=== PATIENT | male | born 1960 | race Caucasian/White ===

== ENCOUNTER 2016-07-29 01:23 | Day surgery (SDC) | payer OTHER ==
[~2016-07-29] VITALS: Ht 185.4 cm; Wt 113.4 kg
[~2016-07-29 01:23] MED LIST: ALBUTHFA INH; AMLO5TAB90 PO; CLAR10T PO; FLONASE; MULT-1018 PO; OMEP20CA11 PO
[2016-07-29] MEDS ORDERED: Sodium Chloride LOK Flush 10 mL Syringe IV PRN (09:15)
[2016-07-29] MEDS ORDERED: fentaNYL-PF 50 mCg/mL 2 mL Inj IVPUSH PRN (09:15)
[2016-07-29 09:52] VITALS: BP 137/85; PULSE 66; RESP 12; O2SAT 98
[2016-07-29] MEDS: 0.9% Sodium Chloride 1,000 ML IV PRN ×2 (10:11→10:53)
[2016-07-29 11:05] VITALS: BP 121/76; PULSE 68; RESP 16; O2SAT 98
[2016-07-29 11:15] VITALS: BP 118/71; PULSE 63; RESP 16; O2SAT 96
[2016-07-29 11:25] VITALS: BP 129/91; PULSE 62; RESP 16; O2SAT 97
--- NOTE | 2016-07-29 15:10 | ENDO ---
[address] [address] ENDOSCOPY PROCEDURE PATIENT: IZZY DUNAWAY : 1960 MR#: [id number] ADMIT: 07/29/2016 JOB ID: [id number] DATE: 07/29/2016 PRIMARY PROVIDER: Darnell Simpson Rai PROCEDURE: Esophagogastroduodenoscopy with biopsies and a colonoscopy with cold forceps polypectomy. INDICATIONS: A 56-year-old male with long segment La's and a history of colon polyps returning for surveillance. EQUIPMENT: GIF H 180 J and a PCF H 180 AL. SEDATION: 1. 9 mg Versed. 2. 175 mcg fentanyl. COMPLICATIONS: None identified. BOWEL PREPARATION: Fair, adequate examination. PROCEDURAL INFORMATION: After the risks and benefits were explained, written and verbal informed consent was obtained. The patient was brought into the endoscopy suite and placed into the left lateral decubitus position. Sedation was achieved using the above-stated medications with the addition of oxygen via nasal cannula. The scope was introduced into the mouth through the bite block, and advanced to the second portion of the duodenum and the scope was slowly withdrawn to carefully examine the mucosa for any defects or lesions. Retroflexed views were accomplished in the stomach. The stomach was decompressed. The scope removed the patient who tolerated the procedure well. The patient was then turned around. A digital rectal examination accomplished. Moderate grade 3 inflamed hemorrhoids, nonthrombosed, nonbleeding were identified. The scope was introduced into the rectum and advanced to the cecum as identified by the appendiceal orifice and ileocecal valve. The scope was slowly withdrawn to carefully examine the mucosa for any defects or lesions. Retroflexed views were accomplished in the rectum. The colon was decompressed. The scope removed from the patient who tolerated the procedure well. With. FINDINGS: 1. Duodenum. There was a small polyp in the early second portion removed with cold forceps. Otherwise, no significant pathology appreciated. 2. Stomach: There was a diminutive gastric polyp in the fundus. It was a little erythematous. This was removed by way of piecemeal polypectomy. It measured perhaps 5-6 mm. No other significant pathology identified throughout. 3. Esophagus: The squamocolumnar junction extended all the way up into the proximal esophagus. The GE junction was at about 40 cm from the incisors. This measured out to be an approximately nearly circumferential 10 cm segment of La's. Did not see any evidence of acute inflammatory areas. No nodules. No mass lesions. No high risk areas appreciated. Four quadrant biopsies were taken at 39, 37, 35, 33, and finally 31 cm from the incisors. 4. Colon: There was some mild diverticulosis in the left colon. A diminutive 4 mm polyp was removed with cold forceps from the rectum. No other significant pathology was appreciated throughout. ENDOSCOPIC DIAGNOSES: 1. Long segment La's. 2. Sliding hiatal hernia (not mentioned above). 3. Gastric polyps. 4. Duodenal polyp. 5. Rectal polyp. 6. Diverticulosis. 7. Moderately engorged internal hemorrhoids. RECOMMENDATIONS: 1. Await histopathology. 2. If non dysplastic La's is confirmed, then repeat esophagogastroduodenoscopy three years. 3. Continue anti-reflux regimen. 4. Repeat colonoscopy in five years' time. 5. The patient is encouraged to engage in warm Epsom salt baths this evening. He may benefit from a short course of preparation H suppository therapy to control hemorrhoidal engorgement plus or minus the Preparation-H cooling gel. 6. Followup GI clinic p.r.n.
--- NOTE | 2016-07-31 10:04 | PATH ---
SURGICAL PATHOLOGY Attending Physician:Anthony English CASE STATUS: Signed Out PATIENT NAME: IZZY DUNAWAY PID: [id number] : 1960 DATE COLLECTED:07/29/2016 20:35 SPECIMEN: 1: Esophagus, Biopsy 2: Esophagus, Biopsy 3: Esophagus, Biopsy 4: Esophagus, Biopsy 5: Esophagus, Biopsy 6: Stomach, Polyp, Biopsy 7: Duodenum, Biopsy 8: Rectum, Biopsy CLINICAL HISTORY: HISTORY TIWARI'S, HISTORY COLON POLYPS, UGI POLYPS 1). ESOPHAGUS BIOPSY @ 31CM 2). ESOPHAGUS BIOPSY @ 33CM 3). ESOPHAGUS BIOPSY @ 35CM 4). ESOPHAGUS BIOPSY @ 37CM 5). ESOPHAGUS BIOPSY @ 39CM 6). GASTRIC POLYP 7). DUODENAL POLYP 8). RECTAL POLYP FINAL DIAGNOSIS: 1. 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 Negative for dysplasia and malignancy. 2. 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 Negative for dysplasia and malignancy. 3. 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 Negative for dysplasia and malignancy. 4. 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 Negative for dysplasia and malignancy. 5. Esophagus Biopsy at 39 cm: Metaplastic intestinal metaplasia consistent with Tiwari's esophagus, 3 of 5 fragments. Negative for dysplasia and malignancy. 6. Gastric Polyp: Hyperplastic polyp. Negative for intestinal metaplasia. Negative for dysplasia and malignancy. 7. Duodenal Polyp: Benign duodenal mucosa with gastric surface cell metaplasia. Negative for dysplasia and malignancy. Multiple microscopic levels examined. 8. 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 1). The specimen is sublabeled "esophagus at 31 CM" and consists of 3 portions of tissue which aggregate to 0.3 x 0.3 x 0.2 CM. The specimen is entirely submitted in cassette 1A. 2). The specimen is sublabeled "esophagus at 33 CM" and consists of 4 portions of tissue which aggregate to 0.3 x 0.3 x 0.2 CM. The specimen is entirely submitted in cassette 2A. 3). Thus specimen is sublabeled "esophagus at 35 CM" and consists of 4 portions of tissue which aggregate to 0.3 x 0.3 x 0.2 CM. The specimen is entirely submitted in cassette 3A. 4). The specimen is sublabeled "esophagus at 37 CM" and consists of 4 portions of tissue which aggregate to 0.3 x 0.3 x 0.2 CM. The specimen is entirely submitted in cassette 4A. 5). The specimen is sublabeled "esophagus at 39 CM" and consists of 4 portions of tissue which aggregate to 0.3 x 0.3 x 0.3 CM. The specimen is entirely submitted in cassette 5A. 6). The specimen is sublabeled "gastric polyp" and consists of 2 portions of tissue which aggregate to 0.4 x 0.4 x 0.3 CM. The specimen is entirely submitted in cassette 6A. 7). The specimen is sublabeled "duodenal polyp" and consists of a 0.3 x 0.3 x 0.3 CM portion of tissue which is entirely submitted in cassette 7A. 8). The specimen is sublabeled "rectal polyp" and consists of 2 portions of tissue which aggregate to 0.3 x 0.3 x 0.2 CM. The specimen is entirely submitted in cassette 8A. 07/29/2016 [facility] MICRO DESCRIPTION: Please see diagnosis. ICD-9 CODES: CPT CODES: 1: 31264 2: 33291 3: 76532 4: 41294 5: 05347 6: 72983, 29102 7: 15124 8: 52991 PROCEDURE/ADDENDA: Immunohistochemistry SPI Interpretation {Not Entered} Results-Comments This is an addendum issued report the results of IHC. IHC reported at the request of Dr. Bell. RESULTS: 6.GASTRIC POLYP: NEGATIVE FOR HELICOBACTER BY IMMUNOHISTOCHEMISTRY. INTERPRETATION: A Helicobacter stain was performed at the request of Dr. Bell to evaluate for Helicobacter organisms and is negative. A control stain showed appropriate reactivity. This test was developed and its performance characteristics determined by [facility]. It has not been cleared or approved by the U. [place]. Food and Drug Administration. The FDA has determined that such clearance or approval is not necessary. This test is used for clinical purposes. It should not be regarded as investigational or for research. Electronically Signed Out Cecilia Giraldo MD Electronically Signed Out Qian Britton MD Located Within [facility] Pathology [facility] [address], [place] [address] Technical component performed at [facility], [address], [place], [address]
== END 2016-07-29 23:59 | disposition home or self-care (01) ==
LOC: END 01:23
PROVIDERS: ATTEND Internal Medicine Gastroenterology
DX: Z12.11 Encounter for screening for malignant neoplasm of colon (principal); Z86.010 Personal history of colon polyps; K62.1 Rectal polyp; K64.4 Residual hemorrhoidal skin tags; K57.30 Diverticulosis of large intestine without perforation or abscess without bleeding; K22.70 Barrett's esophagus without dysplasia; K44.9 Diaphragmatic hernia without obstruction or gangrene; K31.7 Polyp of stomach and duodenum; I10 Essential (primary) hypertension
CPT/HCPCS: 43239; 45380; 99153; G0500; J7030